=== PATIENT | male | born 1995 | race Caucasian/White ===

== ENCOUNTER 2019-10-07 22:53 | Emergency (ER) | payer OTHER ==
[~2019-10-07] VITALS: Ht 185.4 cm; Wt 109.5 kg
[2019-10-07 23:00] VITALS: BP 124/73
--- NOTE | 2019-10-07 23:08 | NUR ---
FLU SWAB COLLECTED.
--- NOTE | 2019-10-07 23:10 | NUR ---
AMBULATES TO BED 12 WITH UPRIGHT STEADY GAIT. FAMILY ACCOMPANYING.
--- NOTE | 2019-10-07 23:26 | NUR ---
23 Y/O PRESENTS TO ED, C/O COUGHING X1 WEEK. PT STATES HAVING SORETHROAT ALONG WITH COUGH. USES NEBULIZER AT HOME WITH NO RELIEF. C/O DIFFICULTY BREATHING. NO SOB NOTED. LUNG SOUNDS BILAT CLEAR. DENIES CHEST PAIN. PT STATES HAVING FEVER BUT NO FEVER TODAY. PT VSS. ERMD AWARE. WILL CONTINUE TO MONITOR.
[2019-10-08 02:49] VITALS: BP 118/69
== END 2019-10-08 02:49 | disposition home or self-care (01) ==
LOC: MED 22:53
DX: B34.9 Viral infection, unspecified (principal); Z98.890 Other specified postprocedural states
CPT/HCPCS: 71045; 87804; 99284; Q0092